=== PATIENT | male | born 1995 | race Hispanic/Latino ===

== ENCOUNTER 2019-02-09 13:51 | Emergency (ER) | payer SELFPAY ==
[~2019-02-09] VITALS: Ht 167.6 cm; Wt 85.0 kg
[2019-02-09] MEDS ORDERED: NAPROSYN500 MG PO (14:19)
[2019-02-09 14:35] VITALS: BP 145/74
== END 2019-02-09 14:35 | disposition home or self-care (01) | DRG 605 ==
LOC: ED 13:51
DX: S50.01XA Contusion of right elbow, initial encounter (principal); W10.9XXA Fall (on) (from) unspecified stairs and steps, initial encounter; Y93.01 Activity, walking, marching and hiking; Y92.009 Unspecified place in unspecified non-institutional (private) residence as the place of occurrence of the external cause